=== PATIENT | female | born 1985 | race Caucasian/White ===

== ENCOUNTER 2016-08-25 21:28 | Emergency (ER) | payer OTHER ==
[~2016-08-25] VITALS: Ht 175.3 cm; Wt 84.5 kg
[~2016-08-25 21:28] MED LIST: OXYC1TAB3 PO
[2016-08-25 21:32] VITALS: TEMP 37.1; Ht 175.3 cm; Wt 84.5 kg
[2016-08-25] MEDS ORDERED: KETOROLAC TROMETHAMINE 30 MG/ML VIAL IV STA (21:46)
[2016-08-25] MEDS ORDERED: SODIUM CHLORIDE 0.9% 1000ML 1,000 ML IV STA (21:46)
[2016-08-25] MEDS ORDERED: ONDANSETRON INJ 2 MG/ML 2 ML VIAL IV STA (21:46)
[2016-08-25] MEDS ORDERED: HYDROmorphone INJ 1 MG/ML SYR IV STA (21:46)
--- NOTE | 2016-08-25 21:57 | EMERGENCY ROOM VISIT NOTE ---
History Report prepared by Hardeep: Manuel Muniz Under the Supervision of: Dr. Sinan Salamanca M.D. First contact with patient: 21:39 Chief Complaint: FLANK PAIN Stated Complaint: SEVERE KIDNEY PAIN History of Present Illness The patient is a 31 year old female who presents to the Emergency Room with complaints of severe and persistent pain in her right flank that began on Friday , two days prior to arrival. The patient also complains of vomiting and states that her pain is worsened by eating. She was diagnosed with a UTI 1 month ago, which later spread to her right kidney. She was given ciprofloxacin for the kidney infection by her primary care physician, and was on the prescription for seven days. The patient also complains of frequent migraines over the past week. She does have a history of a kidney stone. Source of History: patient Onset: Two days PRODUCTION SAMPLER Position: back (Right Flank) Symptom Intensity: severe Timing: other (Persistent) Modifying Factors (Worsening): eating Associated Symptoms: + headache, + vomiting Review of Systems See HPI for pertinent positives & negatives. A total of 10 systems reviewed and were otherwise negative. Past Medical & Surgical Medical Problems: (1) Chronic low back pain (2) Fibromyalgia (3) Lyme disease (4) Shoulder dislocation, recurrent (5) Tobacco Use Disorder Family History Cancer Diabetes mellitus Gallbladder disease Hypertension Kidney stones Social History Smoking Status: Current Some Day Smoker Alcohol Use: none Marital Status: Housing Status: lives with family Occupation Status: employed Current/Historical Medications Scheduled Pasxebl-Znmkucwmtmshf-Dxvdlhfg (Excedrin Migraine), 1 TAB PO PRN UD Docusate Sodium (Colace), 1 CAP PO BID Ibuprofen Tab (Advil), 400 MG PO PRN UD Ondasetron Odt (Zofran Odt), 4 MG SL Q6H Senna (Senokot), 1 TAB PO HS Scheduled PRN Clonazepam (Clonazepam), 1 TAB PO BID PRN for Anxiety Oxycodone/Acetaminophen 5MG/325MG (Percocet 5MG/325MG), 1-2 TAB PO Q4H PRN for Pain Allergies Coded Allergies: Cyclobenzaprine (Unverified Allergy, Mild, RAPID HEART RATE, 04/30/16) Physical Exam Vital Signs Date Time Temp Pulse Resp B/P Pulse Ox O2 Delivery O2 Flow Rate FiO2 08/26/16 00:31 74 18 116/61 100 08/25/16 23:13 63 18 115/66 100 Room Air 08/25/16 21:32 37.1 115 20 135/79 99 Room Air Physical Exam GENERAL: Patient is a healthy-appearing well-nourished HEAD: Normocephalic atraumatic EYES: Ocular movements intact pupils equal and react to light OROPHARYNX mucous membranes are moist no exudates present no erythema or edema present NECK: Supple no nuchal rigidity CHEST: Good equal expansion LUNGS: Clear and equal to auscultation CARDIAC: Normal S1 and S2 ABDOMEN: Soft nontender no guarding BACK: Right CVA tenderness to palpation. EXTREMITIES: No pain upon palpation normal muscle strength in all groups no clubbing cyanosis or edema NEURO: Patient is following commands is answering questions appropriately. Alert and oriented x3 Cranial Nerves 2-12 grossly intact Medical Decision & Procedures ER Provider Diagnostic Interpretation: Radiology results as stated below per my review and radiologist interpretation: KUB CLINICAL HISTORY: Right flank pain. FINDINGS: 2 AP supine abdominal radiographs are correlated with renal ultrasound dated 03/20/2012. There is a nonobstructed abdominal bowel gas pattern noting moderate colonic fecal retention. There is no radiographic evidence of nephrolithiasis. Calcified phleboliths are present throughout the pelvis. The bony structures are intact as imaged. IMPRESSION: 1. There is no radiographic evidence of nephrolithiasis. 2. Moderate colonic fecal retention. Electronically signed by: Stephen Beth M.D. 08/25/2016 10:32 PM Dictated Date/Time: 08/25/2016 10:31 PM ULTRASOUND KIDNEYS AND BLADDER CLINICAL HISTORY: Right flank pain. COMPARISON STUDY: Renal ultrasound dated 03/20/2012. KUB dated 08/25/2016. TECHNIQUE: Real-time, grayscale, and color flow sonography of the kidneys and bladder is performed. Images are reviewed in the transverse and longitudinal planes. FINDINGS: Kidneys: The kidneys are normal in size and echotexture. The right kidney measures 12.7 x 4.3 x 6.2 cm and the left kidney measures 12.6 x 7.4 x 6.6 cm. There is no hydronephrosis. No shadowing renal calculi are identified. There is no sonographic evidence of contour deforming renal mass lesion. No perinephric fluid is identified. Bladder: The bladder is normal in morphology. Intraluminal debris is suggested. Bilateral ureteral jets were seen. IMPRESSION: 1. The kidneys are normal in size and without hydronephrosis. 2. There is intraluminal debris present within the bladder. Correlate clinically and with urinalysis for evidence of cystitis. Electronically signed by: Stephen Beth M.D. 08/25/2016 11:03 PM Dictated Date/Time: 08/25/2016 11:00 PM Laboratory Results 08/25/16 22:00 Red Blood Count 4.49, Mean Corpuscular Volume 86.4, Mean Corpuscular Hemoglobin 29.6, Mean Corpuscular Hemoglobin Concent 34.3, Mean Platelet Volume 10.4, Neutrophils (%) (Auto) 75.5, Lymphocytes (%) (Auto) 15.4, Monocytes (%) (Auto) 8.0, Eosinophils (%) (Auto) 0.5, Basophils (%) (Auto) 0.2, Neutrophils # (Auto) 6.99, Lymphocytes # (Auto) 1.43, Monocytes # (Auto) 0.74, Eosinophils # (Auto) 0.05, Basophils # (Auto) 0.02 08/25/16 22:00 Test 08/25/16 21:46 08/25/16 22:00 08/25/16 23:15 Urine Test NEG (NEG) White Blood Count 9.27 K/uL (4.8-10.8) Red Blood Count 4.49 M/uL (4.2-5.4) Hemoglobin 13.3 g/dL (12.0-16.0) Hematocrit 38.8 % (37-47) Mean Corpuscular Volume 86.4 fL (80-100) Mean Corpuscular Hemoglobin 29.6 pg (25-34) Mean Corpuscular Hemoglobin Concent 34.3 g/dl (32-36) Platelet Count 225 K/uL (130-400) Mean Platelet Volume 10.4 fL (7.4-10.4) Neutrophils (%) (Auto) 75.5 % Lymphocytes (%) (Auto) 15.4 % Monocytes (%) (Auto) 8.0 % Eosinophils (%) (Auto) 0.5 % Basophils (%) (Auto) 0.2 % Neutrophils # (Auto) 6.99 K/uL (1.4-6.5) Lymphocytes # (Auto) 1.43 K/uL (1.2-3.4) Monocytes # (Auto) 0.74 K/uL (0.11-0.59) Eosinophils # (Auto) 0.05 K/uL (0-0.5) Basophils # (Auto) 0.02 K/uL (0-0.2) RDW Standard Deviation 45.0 fL (36.4-46.3) RDW Coefficient of Variation 14.1 % (11.5-14.5) Immature Granulocyte % (Auto) 0.4 % Immature Granulocyte # (Auto) 0.04 K/uL (0.00-0.02) Anion Gap 10.0 mmol/L (3-11) Est Creatinine Clear Calc Drug Dose 117.2 ml/min Estimated GFR () 113.1 Estimated GFR (Non- 97.6 BUN/Creatinine Ratio 11.8 (10-20) Calcium Level 8.3 mg/dl (8.5-10.1) Total Bilirubin 0.3 mg/dl (0.2-1) Direct Bilirubin 0.1 mg/dl (0-0.2) Aspartate Amino Transf (AST/SGOT) 13 U/L (15-37) Alanine Aminotransferase (ALT/SGPT) 19 U/L (12-78) Alkaline Phosphatase 67 U/L (45-117) Total Protein 6.8 gm/dl (6.4-8.2) Albumin 3.4 gm/dl (3.4-5.0) Lipase 153 U/L (73-393) Urine Color YELLOW Urine Appearance CLEAR (CLEAR) Urine pH 6.5 (4.5-7.5) Urine Specific [place] 1.010 (1.000-1.030) Urine Protein NEG (NEG) Urine Glucose (UA) NEG (NEG) Urine Ketones NEG (NEG) Urine Occult Blood 1+ (NEG) Urine Nitrite POS (NEG) Urine Bilirubin NEG (NEG) Urine Urobilinogen NEG (NEG) Urine Leukocyte Esterase LARGE (NEG) Urine WBC (Auto) >30 /hpf (0-5) Urine RBC (Auto) 0-4 /hpf (0-4) Urine Hyaline Casts (Auto) 1-5 /lpf (0-5) Urine Epithelial Cells (Auto) 0-5 /lpf (0-5) Urine Bacteria (Auto) 3+ (NEG) Labs reviewed by ED physician. Medications Administered Medications (Trade) Dose Ordered Sig/Eliseo Route Start Time Stop Time Status Last Admin Dose Admin Sodium Chloride (Nss 1000ml) 1,000 ml @ 999 mls/hr Q1H1M STAT IV 08/25/16 21:46 08/25/16 22:46 DC 08/25/16 22:29 999 MLS/HR Ketorolac Tromethamine (Toradol Inj) 30 mg NOW STAT IV 08/25/16 21:46 08/25/16 21:50 DC 08/25/16 22:29 30 MG Hydromorphone HCl (Dilaudid Inj) 1 mg NOW STAT IV 08/25/16 21:46 08/25/16 21:50 DC 08/25/16 22:28 1 MG Ondansetron HCl (Zofran Inj) 4 mg NOW STAT IV 08/25/16 21:46 08/25/16 21:50 DC 08/25/16 22:28 4 MG Ceftriaxone Sodium (Rocephin Inj) 1 gm NOW STAT IV 08/25/16 23:53 08/25/16 23:55 DC 08/25/16 23:58 1 GM Trimethoprim/ Sulfamethoxazole (Septra Ds 800/ 160MG Tab) 1 tab NOW STAT PO 08/25/16 23:53 08/25/16 23:55 DC 08/25/16 23:58 1 TAB Oxycodone/ Acetaminophen (Percocet 5/ 325MG Home Pack) 1 homepack UD ONCE PO 08/26/16 00:00 08/26/16 00:01 DC 08/26/16 00:28 1 HOMEPACK Ondansetron HCl (ZOFRAN ODT 4MG Home Pack) 1 homepack UD ONCE PO 08/26/16 00:15 08/26/16 00:16 DC 08/26/16 00:28 1 HOMEPACK ED Course 2142: Past medical records reviewed. The patient was evaluated in room B4. A complete history and physical examination was performed. 2146: Ordered Zofran 4 mg IV, Dilaudid 1 mg IV, Toradol 30 mg IV, Sodium Chloride 1000 mL @ 999 mL/hr IV. 2353: Ordered Trimethoprim 1 tab PO, Rocephin 1 gm IV. 0000: Ordered Oxycodone/Acetaminophen 1 homepack PO. 0015: Ordered Zofran 1 homepack PO. 0021: Upon reexamination the patient is resting in bed. I discussed results and treatment plan with the patient. She verbalizes agreement and understanding. The patient is ready for discharge. Medical Decision Differential diagnosis: Etiologies such as renal colic, appendicitis, diverticulitis, mesenteric ischemia, aortic pathology, infections, inflammatory bowel disease, PUD, biliary pathology, UTI, as well as others were entertained. This is a 31-year-old female who presents emergency department complaining of right-sided flank pain along with urinary frequency. The patient has a normal CBC normal renal profile normal liver profile normal lipase. She does not have any evidence of hydronephrosis on the ultrasound and has a normal KUB. Her ultrasound is concerning for bladder infection. An IV was established, patient given normal saline bolus, Dilaudid, Toradol. Repeat examination revealed improvement the patient's symptoms. The patient was given Rocephin and Started on Bactrim for what appears to be a UTI pending urine culture results. [place] Drug Monitoring Program Search Results: patient reviewed within database, see additional documentation Drug Monitoring Findings: 60 Clonazepam filled within the last month. Impression Primary Impression: Right flank pain Additional Impression: Urinary tract infection Scribe Attestation The scribe's documentation has been prepared under my direction and personally reviewed by me in its entirety. I confirm that the note above accurately reflects all work, treatment, procedures, and medical decision making performed by me. Departure Information Dispostion Home / Self-Care Prescriptions Ondasetron Odt (ZOFRAN ODT) 4 Mg Tab 4 MG SL Q6H for Nausea, #6 TAB Prov: Sinan Salamanca MD 08/26/16 Oxycodone/Acetaminophen 5MG/325MG (PERCOCET 5MG/325MG) Tab 1-2 TAB PO Q4H Y for Pain, #14 TAB Prov: Sinan Salamanca MD 08/26/16 Docusate Sodium (COLACE) 100 Mg Cap 1 CAP PO BID for 10 Days, #20 CAP Prov: Sinan Salamanca MD 08/26/16 Senna (Senokot) 8.6 Mg Tab 1 TAB PO HS for 10 Days, #10 TAB Prov: Sinan Salamanca MD 08/26/16 Referrals JON KINGSTON M.D. (PCP) Forms HOME CARE DOCUMENTATION FORM, IMPORTANT VISIT INFORMATION Patient Instructions My [facility] Additional Instructions You received narcotic or benzodiazepene medication while in the emergency room today. Do not drive, operate heavy machinery, or drink alcohol under the influence of this medication. Take 600 mg Ibuprofen every 6 hours Take Percocet for breakthrough pain Radiographs and CTs will be reread by a radiologist in the morning. Culture results are usually available in approx 48 hours You have been examined and treated today on an emergency basis only. This is not a substitute for, or an effort to provide, complete comprehensive medical care. It is impossible to recognize and treat all injuries or illnesses in a single emergency department visit. It is therefore important that you follow up closely with Dr Kingston. Call as soon as possible for an appointment. Thank you for your time and consideration. I look forward to speaking with you again soon. Please don't hesitate to call us if you have any questions. Problem Qualifiers Additional Impression: Urinary tract infection Urinary tract infection type: acute cystitis Hematuria presence: with hematuria Qualified Codes: N30.01 - Acute cystitis with hematuria
[2016-08-25 22:08] LABS: BASO % 0.2 %; BASO ABS # 0.02 K/uL (0-0.2); COMPLETE YES; EOS % 0.5 %; HEMATOCRIT 38.8 % (37-47); IG% 0.4 %; LYMPH % 15.4 %; LYMPH ABS # 1.43 K/uL (1.2-3.4); MEAN CELL VOLUME 86.4 fL (80-100); MEAN CORPUSCULAR HEMOGLOBIN 29.6 pg (25-34); MEAN CORPUSCULAR HGB CONC 34.3 g/dl (32-36); MEAN PLATELET VOLUME 10.4 fL (7.4-10.4); NEUT % 75.5 %; PLATELET COUNT 225 K/uL (130-400); RED BLOOD COUNT 4.49 M/uL (4.2-5.4); WHITE BLOOD COUNT 9.27 K/uL (4.8-10.8)
[2016-08-25] MEDS ORDERED: IBUP-103 PO (22:13)
[2016-08-25] MEDS ORDERED: ASPI-390 PO (22:13)
[2016-08-25] MEDS ORDERED: KLN5X PO (22:13)
[2016-08-25 22:26] LABS: BUN/CREATININE RATIO 11.8 (10-20); CREATININE 0.8 mg/dl (0.60-1.20); POTASSIUM 3.3 mmol/L (3.5-5.1)
[2016-08-25 22:27] LABS: CALCIUM 8.3 mg/dl (8.5-10.1)
--- NOTE | 2016-08-25 22:34 | DIAGNOSTIC IMAGING REPORT ---
KUB CLINICAL HISTORY: Right flank pain. FINDINGS: 2 AP supine abdominal radiographs are correlated with renal ultrasound dated 03/20/2012. There is a nonobstructed abdominal bowel gas pattern noting moderate colonic fecal retention. There is no radiographic evidence of nephrolithiasis. Calcified phleboliths are present throughout the pelvis. The bony structures are intact as imaged. IMPRESSION: 1. There is no radiographic evidence of nephrolithiasis. 2. Moderate colonic fecal retention. Electronically signed by: Stephen Beth M.D. 08/25/2016 10:32 PM Dictated Date/Time: 08/25/2016 10:31 PM
--- NOTE | 2016-08-25 23:05 | DIAGNOSTIC IMAGING REPORT ---
ULTRASOUND KIDNEYS AND BLADDER CLINICAL HISTORY: Right flank pain. COMPARISON STUDY: Renal ultrasound dated 03/20/2012. KUB dated 08/25/2016. TECHNIQUE: Real-time, grayscale, and color flow sonography of the kidneys and bladder is performed. Images are reviewed in the transverse and longitudinal planes. FINDINGS: Kidneys: The kidneys are normal in size and echotexture. The right kidney measures 12.7 x 4.3 x 6.2 cm and the left kidney measures 12.6 x 7.4 x 6.6 cm. There is no hydronephrosis. No shadowing renal calculi are identified. There is no sonographic evidence of contour deforming renal mass lesion. No perinephric fluid is identified. Bladder: The bladder is normal in morphology. Intraluminal debris is suggested. Bilateral ureteral jets were seen. IMPRESSION: 1. The kidneys are normal in size and without hydronephrosis. 2. There is intraluminal debris present within the bladder. Correlate clinically and with urinalysis for evidence of cystitis. Electronically signed by: Stephen Beth M.D. 08/25/2016 11:03 PM Dictated Date/Time: 08/25/2016 11:00 PM
[2016-08-25 23:34] LABS: URINE APPEARANCE CLEAR (CLEAR); URINE BILIRUBIN NEG (NEG); URINE COLOR YELLOW; URINE EPITHELIAL CELL AUTO 0-5 /lpf (0-5); URINE NITRITE POS (NEG); URINE PH 6.5 (4.5-7.5); UROBILINOGEN NEG (NEG)
[2016-08-25 23:52] LABS: MANUAL MICROSCOPIC REQUIRED? NO; REVIEW REQ? NO
[2016-08-25] MEDS ORDERED: CEFTRIAXONE SOD INJ 1 GM ADDVIAL IV STA (23:53)
[2016-08-25] MEDS ORDERED: SULFAMETHOXAZOLE/TRIMETHOPRIM DS 800/160MG TAB PO STA (23:53)
[2016-08-26] MEDS ORDERED: PERCOCET HOME PACK PO ONE
[2016-08-26] MEDS ORDERED: OXYC-57 PO (00:04)
[2016-08-26] MEDS ORDERED: DOCU-94 PO (00:04)
[2016-08-26] MEDS ORDERED: SENN-61 PO (00:04)
[2016-08-26] MEDS ORDERED: ONDA4TAB10 SL (00:04)
[2016-08-26] MEDS ORDERED: ONDANSETRON HOME PACK 4MG OD TAB PO ONE (00:15)
[2016-08-26 00:31] VITALS: BP 116/61; PULSE 74; O2SAT 100
== END 2016-08-26 00:31 | disposition home or self-care (01) ==
LOC: C.EDB 21:29
DX: R10.9 Unspecified abdominal pain (principal); N30.01 Acute cystitis with hematuria; Z83.3 Family history of diabetes mellitus; Z82.49 Family history of ischemic heart disease and other diseases of the circulatory system; F17.200 Nicotine dependence, unspecified, uncomplicated; K59.00 Constipation, unspecified

== ENCOUNTER 2016-10-14 09:03 | Emergency (ER) | payer OTHER ==
[~2016-10-14] VITALS: Ht 175.3 cm; Wt 82.7 kg
[~2016-10-14 09:03] MED LIST changes: +ASPI-390 PO; +IBUP-103 PO; +KLN5X PO; +ONDA4TAB10 SL; +OXYC-57 PO; -OXYC1TAB3 PO
[2016-10-14 09:09] VITALS: TEMP 37.3; Ht 175.3 cm; Wt 82.7 kg
[2016-10-14] MEDS ORDERED: OXYC1TAB3 PO (09:36)
--- NOTE | 2016-10-14 09:38 | EMERGENCY ROOM VISIT NOTE ---
History First contact with patient: 09:22 Chief Complaint: DENTAL PAIN Stated Complaint: SEVERE DENTAL PAIN Nursing Triage Summary: Pt presents with lower dental pain. States when she was she lost all her calcium and ended up having upper teeth extracted. Having lower dental pain that was "excrutiating" on Fri. Seen at [facility] ED yesterday and told to start Clinda. Pt told to take 600mg Ibuprofren every 6 hrs, states no relief. History of Present Illness The patient is a 31 year old female who presents to the Emergency Room via private vehicle accompanied by child with complaints of "severe dental pain". Patient has a history of poor dentition status post her 4 years ago. She was told that the child pulled all the calcium from her body. She states that her entire top teeth have been removed previously. She has very few teeth left on the bottom. She states that 3 weeks ago there was a generalized aching in the teeth. This past Friday the pain has worsened and radiates to the jaw, and up towards the eyes. She rates the pain as a 12/10. She states she was seen yesterday at the [facility] emergency department and given clindamycin. She was told to take 600 mg of ibuprofen with no relief. She is also tried Tylenol and Orajel with minimal relief. She does have minimal pain underneath the tongue, however believes this is from pressing in the area to help with pain. She states that she was provided with paperwork yesterday of dentists in the area that she is going to follow up with to have the dentition removed and hopefully receive dentures. Review of Systems A complete 6-point Review of Systems was discussed with the patient, with pertinent positives and negatives listed in the History of Present Illness. All remaining Review of Systems questions can be considered negative unless otherwise specified. Past Medical/Surgical History Medical Problems: (1) Chronic low back pain (2) Fibromyalgia (3) Lyme disease (4) Shoulder dislocation, recurrent (5) Tobacco Use Disorder Family History Cancer Diabetes mellitus Gallbladder disease Hypertension Kidney stones Social History Smoking Status: Current Some Day Smoker Alcohol Use: none Marital Status: Housing Status: lives with family Occupation Status: employed Current/Historical Medications Scheduled Wmnstsh-Nypzmeothoext-Tmceubbq (Excedrin Migraine), 1 TAB PO PRN UD Ibuprofen Tab (Advil), 400 MG PO PRN UD Ondasetron Odt (Zofran Odt), 4 MG SL Q6H Scheduled PRN Clonazepam (Clonazepam), 1 TAB PO BID PRN for Anxiety Oxycodone Ir (Roxicodone Ir), 1-2 TAB PO Q4H PRN for Pain Oxycodone/Acetaminophen 5MG/325MG (Percocet 5MG/325MG), 1-2 TAB PO Q4H PRN for Pain Allergies Coded Allergies: Cyclobenzaprine (Unverified Allergy, Mild, RAPID HEART RATE, 04/30/16) Physical Exam Vital Signs Date Time Temp Pulse Resp B/P (MAP) Pulse Ox O2 Delivery O2 Flow Rate FiO2 10/14/16 09:09 37.3 96 20 124/83 100 Room Air Physical Exam Vitals are noted on the nurse's note and reviewed by myself. Vital signs stable. Temperature 37.3C orally. GENERAL: 31-year-old female, in no acute distress, nondiaphoretic, well-developed well-nourished. Mouth: The inferior front dentition is very carious and the gum is swollen and tender around them, without any discharge or signs of an abscess. The remainder of the pharynx and tonsils are without erythema, edema, or exudate. The airway is patent. There is no facial swelling, cervical or submandibular lymphadenopathy. The patient appears uncomfortable and in pain. Minimal tenderness underneath the jaw/ tongue region without evidence of abscess or Shankar angina. No evidence of meningitis on exam. The patient has overall poor dental hygiene. EARS: External auditory canals clear, tympanic membranes pearly liu without erythema or effusion bilaterally. Medical Decision & Procedures Medical Decision Patient was seen and evaluated as above. She presents to us today with poor dentition and dental pain. She is nontoxic in appearance. There is no evidence of abscess or infection. I suspect her pain is likely secondary to the carious nature of her teeth. She's been seen here previously and given pain medication, and after thorough review of the [place] drug monitoring system I will provide her with a short-term pain medication supply of oxycodone immediate release. She is to take clindamycin she was prescribed yesterday. She is to follow-up with a dentist for further evaluation and management of her current condition. At this time I do not suspect any emergent ailment. Again no evidence of Shankar angina, meningitis or infection on examination. She was educated upon management of today's findings, educated upon worrisome symptoms in which to return, had questions prior to discharge and was discharged home in good condition. She was also informed that repeat visits to the emergency Department for pain medication related to dental pain issues is difficult, however we are more than happy to help her in the future. In the evaluation and treatment of this patient, the following differential diagnoses were considered: Periapical Abscess, Osteonecrosis of the Jaw, Dental Fracture, Dental Caries, Shankar's Angina, Vincent's Angina, Facial Cellulitis. Impression Primary Impression: Dental caries Additional Impression: Tooth pain with chewing Departure Information Dispostion Home / Self-Care Condition GOOD Prescriptions Oxycodone Ir (Roxicodone Ir) 5 Mg Tab 1-2 TAB PO Q4H Y for Pain, #21 TAB For Initial Treatment Prov: Terrance Allen PA-C 10/14/16 Referrals JON QUIROGA M.D. (PCP) Patient Instructions My [facility] Additional Instructions You have been treated in the Emergency Department for Dental Pain. You have been prescribed OXY IR to be used for pain control. This is a narcotic medication. You cannot drive or consume alcohol while on this medicine. This medicine should only be used for pain that cannot be controlled with over-the- counter pain medicines. Please take the clindamycin previously prescribed. For pain control, you can use the following tcvu-bws-jmmntzk medicines (if >12 yo): - Regular strength (325mg/tab) Tylenol (acetaminophen) 2 tabs every 4-6 hours as needed. Do not exceed 12 tablets in a 24 hour period. Avoid taking more than 3 grams (3000 mg) of Tylenol per day. This includes any other sources of acetaminophen you may take on a regular basis. - Regular strength (200 mg/tab) Advil (ibuprofen) 1-2 tabs every 4-6 hours as needed. Do not exceed a dose of 3200 mg per day. Refrain from smoking cigarettes or using chewing tobacco until you have been evaluated by your dentist. Keeping beverages lukewarm and consuming soft foods can decrease your pain. Warm compresses over the affected area may offer some relief. You MUST seek evaluation of your dental pain by a dentist following your visit to the Emergency Department. The Emergency Department is not capable of treating dental issues long-term. You should call your dentist as soon as possible to make an appointment for evaluation of your dental pain. Please follow-up with the dentist says you have indicated. As we discussed please watch for worrisome symptoms, to include pain underneath the tongue as we discussed. Return to the emergency department if you develop the following symptoms despite treatment course outlined above: fever, intractable pain, increased redness, swelling, or purulent discharge. Thank you for your time. Problem Qualifiers
[2016-10-14 09:59] VITALS: BP 131/78; PULSE 89; O2SAT 99
== END 2016-10-14 10:13 | disposition home or self-care (01) ==
LOC: C.EDB 09:03 → C.EDA 10:13
DX: K02.9 Dental caries, unspecified (principal); K08.89 Other specified disorders of teeth and supporting structures; G89.29 Other chronic pain; F17.200 Nicotine dependence, unspecified, uncomplicated; Z87.898 Personal history of other specified conditions; Z87.828 Personal history of other (healed) physical injury and trauma; Z88.8 Allergy status to other drugs, medicaments and biological substances; Z80.9 Family history of malignant neoplasm, unspecified; Z83.3 Family history of diabetes mellitus; Z83.79 Family history of other diseases of the digestive system; Z82.49 Family history of ischemic heart disease and other diseases of the circulatory system; Z84.1 Family history of disorders of kidney and ureter

== ENCOUNTER 2016-12-09 08:44 | Emergency (ER) | payer OTHER ==
[~2016-12-09] VITALS: Ht 175.3 cm; Wt 81.1 kg
[~2016-12-09 08:44] MED LIST changes: +OXYC1TAB3 PO
[2016-12-09 08:48] VITALS: TEMP 37; Ht 175.3 cm; Wt 81.1 kg
[2016-12-09] MEDS ORDERED: CLON0.5T3 PO (09:19)
[2016-12-09] MEDS ORDERED: GABA-113 PO (09:19)
[2016-12-09] MEDS ORDERED: CLIN300C2 PO (10:06)
[2016-12-09] MEDS ORDERED: OXYC1TAB3 PO (10:06)
[2016-12-09 10:26] VITALS: BP 124/76; PULSE 88; O2SAT 97
--- NOTE | 2016-12-09 16:51 | EMERGENCY ROOM VISIT NOTE ---
History First contact with patient: 09:09 Chief Complaint: DENTAL PAIN Stated Complaint: SEVERE DENTAL PAIN Nursing Triage Summary: pt reportss he is to have bottom 6 teeth removed went to dentist they gave her antibiotics and she has appt with oral surgeon on next week . pain is with hot and cold. states she is ready to pull her own teeth out History of Present Illness The patient is a 31 year old female who presents to the Emergency Room with complaints of chronic dental pain. The patient reports that she saw her dentist last week, and was instructed to contact an oral surgeon for dental extraction. The patient has not been able to do so. She reports extreme hot and cold sensitivity and worsening pain. The patient reports that her upper teeth were extracted several years ago, and was always told that she gets a dental infection that she should take clindamycin antibiotics and set of other antibiotic choices. The patient denies any drainage from the teeth or gums. She denies any difficulty swallowing, tongue or neck swelling. She rates her discomfort an 8 out of 10. Review of Systems 10 system review was performed and was negative except for pertinent positives and negatives as indicated in history of present illness Past Medical/Surgical History Medical Problems: (1) Chronic low back pain (2) Fibromyalgia (3) Lyme disease (4) Shoulder dislocation, recurrent (5) Tobacco Use Disorder Family History Cancer Diabetes mellitus Gallbladder disease Hypertension Kidney stones Social History Smoking Status: Current Some Day Smoker Alcohol Use: none Marital Status: Housing Status: lives with family Occupation Status: employed Current/Historical Medications Scheduled Whfzlgb-Vkqwlxvelgubc-Ognypraz (Excedrin Migraine), 1 TAB PO PRN UD Clindamycin Hcl (Cleocin), 300 MG PO QID Gabapentin (Neurontin), 300 MG PO QID Scheduled PRN Clonazepam (Klonopin), 0.5 MG PO BID PRN for Anxiety Oxycodone Ir (Roxicodone Ir), 1-2 TAB PO Q4H PRN for Pain Physical Exam Vital Signs Date Time Temp Pulse Resp B/P (MAP) Pulse Ox O2 Delivery O2 Flow Rate FiO2 12/09/16 10:26 88 16 124/76 97 12/09/16 08:48 37.0 101 18 129/77 97 Room Air Physical Exam CONSTITUTIONAL: Healthy and well nourished. Alert and oriented X 3 with positive affect. Patient does not appear acutely or toxic. HEENT: Normocephalic, atraumatic. Pupils equal, round and reactive. No facial edema noted. OROPHARYNX: The patient has poor maxillary dentition. There is no gingival erythema, fluctuance or pointing. She has a complete maxillary dental extraction. No evidence for Shankar's angina or retropharyngeal abscess. LYMPHATICS: No submental, submandibular, preauricular or cervical chain adenopathy. NECK: Full active range of motion without discomfort. RESPIRATORY: Clear to auscultation bilaterally with no wheezing, crackles, rhonchi or stridor. CARDIOVASCULAR: Regular rate and rhythm with no murmurs, rubs or gallops. GASTROINTESTINAL: Bowel sounds present in all quadrants. INTEGUMENTARY: No rash or other significant dermatologic conditions noted. NEUROLOGIC: Facial sensations are intact. Medical Decision & Procedures ED Course Patient history and physical exam were performed. Nurse's notes reviewed. Vital signs were reviewed and were normal. The patient was reviewed in the [place] Prescription Drug Monitoring Program. It is noted that the patient has receive narcotic prescriptions from our emergency department in the past. The patient was provided prescriptions for clindamycin and OxyIR 5 mg. She was also encouraged to alternate ibuprofen and Tylenol for baseline pain relief. The patient was advised that the emergency department would not provide any further narcotic prescriptions for her dental pain. The patient voiced understanding, and reported that she intends to have her teeth extracted as soon as possible. She reports that her family doctor will not provide pain medications for her. The patient was happy with plan of care, voice understanding of all discharge instructions, and rated her pain a 6 out of 10 at the conclusion of my exam. She refused any analgesics while in the emergency department as she drove here with her young son. Medical Decision [place] Drug Monitoring Program Search Results: patient reviewed within database, see additional documentation Medication Reconcilliation Current Medication List: was personally reviewed by [facility] Blood Pressure Screening Patient's blood pressure: Normal blood pressure Impression Primary Impression: Pain, dental Departure Information Prescriptions Oxycodone Ir (Roxicodone Ir) 5 Mg Tab 1-2 TAB PO Q4H Y for Pain, #15 TAB For Initial Treatment Prov: Nick Sierra PA 12/09/16 Clindamycin Hcl (CLEOCIN) 300 Mg Cap 300 MG PO QID for 10 Days, #40 CAP Prov: Nick Sierra PA 12/09/16 Referrals No Doctor, Assigned (PCP) Patient Instructions [facility]
== END 2016-12-09 10:26 | disposition home or self-care (01) ==
LOC: C.EDB 08:45
DX: K08.89 Other specified disorders of teeth and supporting structures (principal); M79.7 Fibromyalgia; F17.210 Nicotine dependence, cigarettes, uncomplicated

== ENCOUNTER 2017-03-21 22:38 | Observation (INO) | payer OTHER ==
[~2017-03-21] VITALS: Ht 175.3 cm; Wt 85.4 kg
[~2017-03-21 22:38] MED LIST changes: +CLON0.5T3 PO; +GABA-113 PO; -IBUP-103 PO; -KLN5X PO; -ONDA4TAB10 SL; -OXYC-57 PO
[2017-03-21] MEDS ORDERED: SUMA50TA15 PO (22:58)
[2017-03-21] MEDS ORDERED: BUPIVACAINE 0.5 % 5 MG/1 ML MPF 30ML VIAL INFIL ONE (23:15)
[2017-03-21] MEDS ORDERED: KETOROLAC TROMETHAMINE 30 MG/ML VIAL IV STA (23:15)
[2017-03-21 23:23] LABS: BASO % 0.2 %; BASO ABS # 0.02 K/uL (0-0.2); COMPLETE YES; EOS % 5.7 %; HEMATOCRIT 38.9 % (37-47); IG% 0.3 %; LYMPH ABS # 2.57 K/uL (1.2-3.4); MEAN CELL VOLUME 84.4 fL (80-100); MEAN CORPUSCULAR HEMOGLOBIN 28.4 pg (25-34); MEAN CORPUSCULAR HGB CONC 33.7 g/dl (32-36); MEAN PLATELET VOLUME 9.4 fL (7.4-10.4); MONO % 5.9 %; NEUT % 61.9 %; PLATELET COUNT 241 K/uL (130-400); RED BLOOD COUNT 4.61 M/uL (4.2-5.4); WHITE BLOOD COUNT 9.89 K/uL (4.8-10.8)
[2017-03-21 23:36] LABS: POINT OF CARE TROPONIN I < 0.030 ng/ml (0-0.045)
[2017-03-21 23:42] LABS: ALT/SGPT 18 U/L (12-78); BLOOD UREA NITROGEN 13 mg/dl (7-18); BUN/CREATININE RATIO 13.6 (10-20); CALCIUM 8.7 mg/dl (8.5-10.1); CARBON DIOXIDE 28 mmol/L (21-32); CHLORIDE 107 mmol/L (98-107); CREATININE 0.96 mg/dl (0.60-1.20); GLUCOSE 83 mg/dl (70-99); POTASSIUM 3.6 mmol/L (3.5-5.1); SODIUM 141 mmol/L (136-145)
[2017-03-21 23:45] LABS: ALKALINE PHOSPHATASE 80 U/L (45-117); AST/SGOT 11 U/L (15-37)
[2017-03-21 23:49] LABS: PREG INTERNAL NEGATIVE QC NEG CLEAR BACKGROUND; PREG INTERNAL POSITIVE QC POS CONTROL LINE
[2017-03-22] VITALS (8 sets, daily range): BP systolic 97–128; BP diastolic 57–74; PULSE 55–86; TEMP 36.4–37; O2SAT 95–97; Ht 175.3 cm; Wt 85.4 kg
[2017-03-22] MEDS ORDERED: OPTIRAY 320 IV PRN (00:15)
[2017-03-22] MEDS ORDERED: HYDROmorphone INJ 0.5 MG/0.5 ML SYR IV STA (01:47)
[2017-03-22] MEDS ORDERED: HEPARIN 25000 UNIT/500 ML D5W ONE (02:23)
[2017-03-22] MEDS ORDERED: HEPARIN SOD 5000 UNIT/0.5 ML CARP ONE (02:23)
[2017-03-22] MEDS ORDERED: ACETAMINOPHEN 325 MG TAB PO PRN (02:30)
[2017-03-22] MEDS ORDERED: ZOLPIDEM TARTRATE 5 MG TAB PO PRN (02:30)
[2017-03-22] MEDS ORDERED: MAGNESIUM HYDROXIDE SUSP 30 ML UDC PO PRN (02:30)
[2017-03-22] MEDS ORDERED: POLYETHYLENE (MIRALAX) 17 GM PACK PO PRN (02:30)
[2017-03-22] MEDS ORDERED: ALUMINUM/MAGNESIUM/SIMETH (MAALOX MAX) 30 ML UDC PO PRN (02:30)
[2017-03-22] MEDS ORDERED: ONDANSETRON INJ 2 MG/ML 2 ML VIAL IV PRN (02:30)
[2017-03-22 02:40] LABS: PROTHROMBIN TIME (PATIENT) 10.3 SECONDS (9.0-12.0)
[2017-03-22] MEDS ORDERED: HEPARIN 25000 UNIT/ D5W 500 ML (PHARMACY PREPARED) IV PRN ×2 (03:00)
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
--- NOTE | 2017-03-22 05:56 | DIAGNOSTIC IMAGING REPORT ---
(CHEST FOR PE) ANGIO WITH CLINICAL HISTORY: 32 years-old Female presenting with sharp left-sided chest pain near heart, history of infected tooth. TECHNIQUE: Multidetector CT angiography of the chest was performed after administration of intravenous contrast. 3-D volumetric and/or maximum intensity projection (MIP) images were subsequently reconstructed for review. IV contrast: 91 mL of Optiray 320. A dose lowering technique was used consistent with the principles of ALARA (as low as reasonably achievable). COMPARISON: Chest x-ray performed the previous day. CT DOSE (mGy.cm): The estimated cumulative dose is 281.67 mGy.cm. FINDINGS: Monitoring Specialist topogram: Unremarkable. Pulmonary vasculature: The study is adequate for assessment of the pulmonary vascular tree. Filling defect within a segmental pulmonary artery to the anterior right upper lobe (series 4 image 191). Filling defect within a subsegmental pulmonary artery in the left upper lobe (series 4 image 208). Main pulmonary artery is mildly enlarged measuring 3.2 cm in maximal transverse dimension. Mild flattening of the interventricular septum. No intracardiac intracardiac filling defect. No reflux of contrast into the hepatic veins. Remaining chest: On soft tissue windows, calcification noted in the left lobe of the thyroid, which is otherwise normal. No axillary, supraclavicular, hilar, or mediastinal lymphadenopathy. Normal aorta. Normal heart size. No pericardial or pleural effusion. Upper abdomen normal. On lung windows, dependent changes likely atelectasis. Groundglass opacity with minimal solid consolidation in the posterior peripheral left upper lobe in the same distribution as the subsegmental embolus (series 4 image 219) airways patent. On bone windows, normal osseous structures. IMPRESSION: 1. Bilateral segmental and subsegmental pulmonary emboli involving the bilateral upper lobes with developing infarct in the left upper lobe. Overall small clot burden, however, suggestion of mild flattening of the interventricular septum. This raises concern for right heart strain. Correlate clinically. Echocardiogram to be considered. Limited findings were reported to the ordering physician at 1:42 AM. The report will be called/faxed according to standard departmental protocol. Electronically signed by: Angelo Sun M.D. 03/22/2017 5:55 AM Dictated Date/Time: 03/22/2017 5:45 AM
--- NOTE | 2017-03-22 05:57 | DIAGNOSTIC IMAGING REPORT ---
CHEST ONE VIEW PORTABLE CLINICAL HISTORY: 32 years-old Female presenting with CHEST PAIN for the past 7 hours, infected tooth. TECHNIQUE: Portable upright AP view of the chest was obtained. COMPARISON: 10/26/2014. FINDINGS: Cardiomediastinal silhouette normal. Lungs and pleural spaces clear. Osseous structures normal. Upper abdomen normal. IMPRESSION: 1. No acute cardiopulmonary disease. Please see separately dictated CTA of the chest for findings of acute pulmonary emboli. Electronically signed by: Angelo Sun M.D. 03/22/2017 5:56 AM Dictated Date/Time: 03/22/2017 5:55 AM
[2017-03-22] MEDS: HYDROmorphone INJ 0.5 MG/0.5 ML SYR IV PRN ×3 (06:19→13:34)
[2017-03-22] MEDS ORDERED: IV FLUIDS COMPLETED PRN (06:30)
--- NOTE | 2017-03-22 07:07 | Family Medicine Progress Note ---
Progress Note Date of Service Mar 22, 2017. Assessment and Plan 32 y/o F Hx chronic pain syndrome, migraines. Presents with sharp L sided CP with a pleuritic component. Pain persisted for several hours prompting her to attend the ER. A CTA was obtained revealing a few L upper lobe segmental PEs in addition to a pulmonary infarct. 1) PE - a hypercoagulable panel was ordered in the ER. She is placed on Heparin , and provided there is no evidence of bleeding or decompensation, she should likely be DCd with an oral alternative. She should follow with the hematology clinic due to her family history. A lower extremity US is pending. Awaiting hypercoag panel this AM 2) Dental pain--continue dilauded prn for pain 3) Migraines - uses Imitrex PRN 4) Chronic pain - cont Gabapentin This plan is temporary and carries over from yesterday. A full plan will be in place by this afternoon. Assessment/Plan Resident Physician Supervision Note: I was present with Dr. Gregorio during the history and exam. I discussed the case with the resident and agree with the findings and plan as documented in the note. Any exceptions or clarifications are listed here. 32 y/o female w/ FHx of clotting disorder presents with acute onset chest pain w / b/l PE and pulmonary infarct. At present, patient reports pain is controlled with dilaudid IV and she is breathing comfortably on room air. S1/S2 nl RRR no MCG, CTAB b/l, no b/l LE edema. For pulmonary emboli and infarct, patient is anxious to return home. In light of that, will pursue transition of pain medication to PO and d/w case mgmt re: appropriate available AC options. PESI 32 (all age), so VERY LOW risk of mortality. Hypercoagulation work up is pending. Dental pain is at baseline and controlled by medication. Migraines are not present, imitrex PRN. Chronic pain managed with baseline gabapentin.
--- NOTE | 2017-03-22 11:26 | DIAGNOSTIC IMAGING REPORT ---
VENOUS DOPPLER LWR EXT BILA CLINICAL HISTORY: 32 years-old Female presenting with PE. TECHNIQUE: Real-time grayscale and color and spectral Doppler ultrasound imaging of the veins of the bilateral lower extremities was performed. Compression and augmentation were also utilized. COMPARISON: 02/06/2012. FINDINGS: Right: Common femoral vein: Patent. Femoral vein: Patent. Greater saphenous vein: Patent. Popliteal vein: Patent. Calf veins: Patent. Left: Common femoral vein: Patent. Femoral vein: Patent. Greater saphenous vein: Patent. Popliteal vein: Patent. Calf veins: Patent. Other: None. IMPRESSION: No evidence of deep venous thrombosis. Electronically signed by: Angelo Sun M.D. 03/22/2017 11:24 AM Dictated Date/Time: 03/22/2017 11:23 AM
[2017-03-22] MEDS: OXYCODONE/ACETAMINOPHEN 5-325 TAB PO PRN ×2 (14:49→20:04)
--- NOTE | 2017-03-22 18:54 | Discharge Instructions ---
Discharge Instructions Date of Service Mar 22, 2017. Admission Reason for Admission: Pulmonary Embolism Discharge Discharge Diagnosis / Problem: (1) Pulmonary embolism VTE Date & Time Date of VTE Diagnosis: Mar 22, 2017 Time of VTE Diagnosis: 01:40 Discharge Goals Goal(s): Decrease discomfort, Improve function, Improve disease control, Learn about illness, Therapeutic intervention Activity Recommendations Activity Limitations: per Instructions/Follow-up section . Instructions / Follow-Up Instructions / Follow-Up Medication Instructions: Your condition is typically treated with an anticoagulant, rivaroxaban "Xarelto ". Anticoagulants will thin your blood to help prevent new clots. * You should take her medication exactly as directed. * Never skip a dose. * Never take a double dose. If you miss a dose, take it as soon as you remember. You have also been given a short course of pain medications. Take these as prescribed only as you need them. Call your Primary Care doctor if you experience any of the following: * Swelling or Pain in your leg * Sudden, continuous pain deep in a muscle * Pain that worsens when you are active or when you stand still for a long time * Chest Pain * Sudden Shortness of Breath * Rapid or pounding heart beat * Fainting * Dizziness * Cough with blood or bloody sputum * Sweating more than normal * Bruises * Heavy or uncontrolled bleeding * Blood in your urine, stool or vomit * Black or tarry stools Caring for Your Self at Home: * Avoid sitting, standing or lying down for long periods without moving your legs and feet * When traveling by car, stop to get out and move around at least once every 3 hours * On long airplane, train or bus rides, get up and move around when possible * If you can't get up, wiggle your toes and tighten your calves to keep your blood moving Follow Up: It is important for you to keep your follow up appointments with your medical provider. Please see your PCP within 1 week of discharge from the hospital so they can adjust your medications. Current Hospital Diet Patient's current hospital diet: Regular Diet Discharge Diet Recommended Diet: Regular Diet Pending Studies Studies pending at discharge: no Medical Emergencies . Who to Call and When: Medical Emergencies: If at any time you feel your situation is an emergency, please call 911 immediately. . Non-Emergent Contact Non-Emergency issues call your: Primary Care Provider . . "Provider Documentation" section prepared by Mell Gregorio. . VTE Core Measure Inpt VTE Proph given/why not?: Unfractionated heparin SQ, Other Anticoagulation [place] Drug Monitoring Program Search Results: patient reviewed within database Drug Monitoring Findings: patient states she has stopped taking klonipin 1-2 months ago
[2017-03-22] MEDS ORDERED: XRL15 PO (18:57)
[2017-03-22] MEDS ORDERED: ENOXAPARIN 120 MG/0.8 ML SYR SQ ONE (19:00)
[2017-03-22] MEDS ORDERED: ENOXAPARIN 1.5 MG/KG SQ SCH (19:00)
[2017-03-22] MEDS ORDERED: RIVAROXABAN TAB 15 MG TAB PO SCH (21:00)
--- NOTE | 2017-03-22 23:48 | Discharge Summary ---
Discharge Summary Date of Service Mar 22, 2017. (Mell Gregorio M.D.) Discharge Summary Admission Date: Mar 22, 2017 at 02:30 Discharge Date: Mar 22, 2017 Discharge Disposition: Home Principal Diagnosis: pulmonary embolus Problems/Secondary Diagnoses: dental pain, migraines, chronic pain Immunizations: Have You Had Influenza Vaccine: Unknown History of Tetanus Vaccine?: Unknown (Mell Gregorio M.D.) Medication Reconciliation New Medications: Rivaroxaban (Xarelto) 15 Mg Tab 15 MG PO BID for 21 Days, #42 TAB Continued Medications: Lkmugew-Mjscwrcmrreyt-Fvzbifhi (Excedrin Migraine) 1 Tab Tab 1 TAB PO PRN UD Gabapentin (Neurontin) 300 Mg Cap 300 MG PO QID, CAP Sumatriptan Succinate (Imitrex) 50 Mg Tab 50 MG PO DIRECTED PRN for Migraine, TAB MAX OF 2 TABS IN 24 HOURS. Discharge Exam Review of Systems: Constitutional: No fever, No chills, No sweats, No weight loss, No weakness , No fatigue, No problem reported ENT: + dental problems Respiratory: + shortness of breath, + problem reported (pleuritic chest pain ) Cardiovascular: + chest pain (left sided, pleuritic) Abdomen: No pain, No nausea, No vomiting, No diarrhea, No constipation, No GI bleeding, No problem reported Musculoskeletal: + joint pain, + muscle pain Physical Exam: General Appearance: WD/WN, no apparent distress Eyes: normal inspection, PERRL ENT: normal ENT inspection (various teeth missing but no evidence of abscess ) Respiratory/Chest: lungs clear, normal breath sounds, no accessory muscle use Cardiovascular: regular rate, rhythm, no edema, no gallop, no murmur, normal peripheral pulses Abdomen / GI: normal bowel sounds, non tender, soft Extremities: normal inspection, no pedal edema 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 Presented with sharp L sided CP with a pleuritic component. Pain persisted for several hours prompting her to attend the ER. A CTA was obtained revealing a few L upper lobe segmental PEs in addition to a pulmonary infarct. 1) PE - a hypercoagulable panel was ordered in the ER. She was placed on Heparin with goal of xarelto on discharge She should follow with the hematology clinic due to her family history. Lower extremity US is negative for DVT Awaiting hypercoag panel PESI 32 (all age), so VERY LOW risk of mortality Received 1 dose of lovenox on DC and DCd with xarelto Rx 15 mg BID x 21 days, converting to 20 mg OD 2) Dental pain--continued dilauded as inpatient, discharged with percocet short course 3) Migraines - Imitrex PRN 4) Chronic pain - continued Gabapentin Total Time Spent: Less than 30 minutes This includes examination of the patient, discharge planning, medication reconciliation, and communication with other providers. (Mell Gregorio M.D.) Discharge Instructions Please refer to the electronic Patient Visit Report (Discharge Instructions) for additional information. (Mell Gregorio M.D.) Additional Copies To JON QUIROGA M.D. Resident Tracking Resident Involvement: Resident Care Provided Care Provided: [facility] (Mell Gregorio M.D.) Assessment/Plan Resident Physician Supervision Note: I was present with Dr. Gregorio during the history and exam. I discussed the case with the resident and agree with the findings and plan as documented in the note. Any exceptions or clarifications are listed here. 32 y/o female w/ FHx of clotting disorder presents with acute onset chest pain w / b/l PE and pulmonary infarct. At present, patient reports pain is improved is breathing comfortably on room air. S1/S2 nl RRR no MCG, CTAB b/l, no b/l LE edema. For pulmonary emboli and infarct, patient is anxious to return home. In light of that, will pursue transition of pain medication to PO and initiate AC as above. PESI 32 (all age), so VERY LOW risk of mortality. Hypercoagulation work up is pending. Dental pain is at baseline and controlled by medication. Migraines are not present, imitrex PRN. Chronic pain managed with baseline gabapentin. (Aris Craft MD)
[2017-03-23] MEDS ORDERED: RIVAROXABAN 20 MG TAB PO SCH (09:00)
[2017-03-23] MEDS ORDERED: ENOXAPARIN 120 MG/0.8 ML SYR SQ ONE (19:00)
[2017-03-26 12:32] LABS: ANTITHROMBINIII ACTIVITY** 117 % activity (80-120); B2 GLYCOPROTEIN IGA <9 SAU (<=20); B2 GLYCOPROTEIN IGG <9 SGU (<=20); B2 GLYCOPROTEIN IGM <9 SMU (<=20)
[2017-03-27 12:33] LABS: DRVVT MIX INTERPRETAION Not Indicated; LAC PTT SCREEN 41 sec (<=40); PROTEIN C ACTIVITY** TC 1777X 94 % (70-180); PROTEIN S ACT(FUNCT)**1779X 72 % (60-140)
[2017-03-28 07:30] LABS: LUPUS ANTICOAGULANT** TC36573X Negative (Negative)
== END 2017-03-22 20:00 | disposition home or self-care (01) ==
LOC: C.EDB 22:39 → C.2E 03-22 02:30 → ENRESERV 03-22 02:37
PROVIDERS: ADMIT Internal Medicine; ATTEND Family Medicine
DX: I26.99 Other pulmonary embolism without acute cor pulmonale (principal); K08.89 Other specified disorders of teeth and supporting structures; G89.4 Chronic pain syndrome; G43.909 Migraine, unspecified, not intractable, without status migrainosus; Z87.891 Personal history of nicotine dependence; Z79.899 Other long term (current) drug therapy